=== PATIENT | male | born 1970 | race Caucasian/White ===

== ENCOUNTER 2022-09-12 21:49 | Emergency (ER) | payer OTHER ==
[~2022-09-12] VITALS: Ht 190.5 cm; Wt 99.8 kg
[2022-09-13] MEDS ORDERED: ALBUTEROL/IPRATROPIUM 3 ML NEB NEB ONE ×2 (00:15→02:45)
[2022-09-13] MEDS ORDERED: METHYLPREDNISOLONE SOD SUCC 125 MG/2ML VIAL IV ONE (00:15)
[2022-09-13 00:20] LABS: BASOPHILS # (AUTO) 0.1 (0.0-0.1); BASOPHILS % 0.6 % (0.0-1.0); EOSINOPHILS % 0.1 % (0.0-6.0); HEMATOCRIT 37.4 % (38.2-49.6); HEMOGLOBIN 11.8 g/dL (14.0-18.0); LYMPHOCYTES # (AUTO) 3.3 (1.0-3.2); LYMPHOCYTES % 27.7 % (18.0-39.1); MEAN CORPUSCULAR HEMOGLOBIN 31.6 pg (28-32); MEAN CORPUSCULAR HGB CONC 31.6 g/dL (31-35); MEAN CORPUSCULAR VOLUME 100.3 fL (81-99); MONOCYTES % 16.9 % (4.4-11.3); NEUTROPHILS # (AUTO) 6.5 (2.1-6.9); PLATELET COUNT 312 x10e3/uL (140-360); RED BLOOD COUNT 3.73 x10e6/uL (4.3-5.7); RED CELL DISTRIBUTION WIDTH 13.7 % (11.7-14.4)
[2022-09-13 00:24] LABS: INR 1.21; PROTHROMBIN TIME 15.5 seconds (11.9-14.5)
[2022-09-13 00:25] LABS: PARTIAL THROMBOPLASTIN TIME 33.5 seconds (23.8-35.5)
[2022-09-13 00:34] LABS: ALBUMIN 3.5 g/dL (3.5-5.0); ALBUMIN/GLOBULIN RATIO 1.1 (0.8-2.0); ANION GAP 13.8 mmol/L (8-16); CALCIUM 8.6 mg/dL (8.4-10.2); CREATININE, SERUM 1.06 mg/dL (0.72-1.25); POTASSIUM 3.8 mmol/L (3.5-5.1)
[2022-09-13] MEDS ORDERED: BEBTELOVIMAB 175 MG INJ IV ONE (02:45)
[2022-09-13] MEDS ORDERED: ALBUTEROL/IPRATROPIUM 3 ML NEB ONE (02:57)
[2022-09-13] MEDS ORDERED: ONDANSETRON HCL INJ 2MG/ML 2ML 2 MG/ML VIAL IV PRN (04:00)
[2022-09-13 04:37] VITALS: BP 126/55
[2022-09-13] MEDS ORDERED: SODIUM CHLORIDE FLUSH 10 ML SYR IV PRN (06:00)
== END 2022-09-13 04:45 | disposition home or self-care (01) ==
LOC: ER 21:55
DX: R09.02 Hypoxemia (principal); U07.1 COVID-19; R06.2 Wheezing; Z85.72 Personal history of non-Hodgkin lymphomas
CPT/HCPCS: 36415; 71045; 80053; 83880; 84484; 85025; 85610; 85730; 93005; 94640 ×2; 94799; 99283; J2930; U0002